=== PATIENT | female | born 1970 | race Caucasian/White ===

== ENCOUNTER → 2016-11-07 | Outpatient (CLI) | payer OTHER ==
--- NOTE | 2016-11-07 12:30 | US ---
EXAMINATION TYPE: US duplex aorta DATE OF EXAM: 11/07/2016 11:07 AM COMPARISON: NONE CLINICAL HISTORY: Z13.9 AAA SCREENING. EXAM MEASUREMENTS: Abdominal Aorta: Proximal: 2.2cm by 2.4 cm transversely Mid: 1.6cm by 1.6 cm transversely Distal: 1.3cm by 1.3 cm transversely Bifurcation: 0.9cm 0.9cm no AAA Ultrasound of entire aorta through bifurcation has measurements detailed above. IMPRESSION: No ultrasound evidence for abdominal aortic aneurysm.
--- NOTE | 2016-11-07 13:58 | MM ---
Reason for exam: screening (asymptomatic). Physical Findings: Nurse did not find any significant physical abnormalities on exam. MG Screening Mammo Implant/CAD Bilateral CC, MLO, and ID view(s) were taken. No prior studies available for comparison. The breast tissue is heterogeneously dense. This may lower the sensitivity of mammography. There is no discrete abnormality. Subpectoral implants x2. These results were verbally communicated with the patient and result sheet given to the patient on 11/07/16. ASSESSMENT: Benign, BI-RAD 2 RECOMMENDATION: Routine screening mammogram of both breasts in 1 year.
== END | disposition home or self-care (01) ==
LOC: RADUSWWP 10:22
PROVIDERS: ATTEND Family Medicine
DX: Z12.31 Encounter for screening mammogram for malignant neoplasm of breast (principal); Z13.9 Encounter for screening, unspecified
CPT/HCPCS: 93979; G0202

== ENCOUNTER → 2017-01-11 | Outpatient (CLI) | payer OTHER ==
--- NOTE | 2017-01-11 08:08 | US ---
EXAMINATION TYPE: US gallbladder DATE OF EXAM: 01/11/2017 COMPARISON: NONE CLINICAL HISTORY: R10.84 Generalized abd pain. RUQ pain, lower abdominal pain EXAM MEASUREMENTS: Liver Length: 14.3 cm Gallbladder Wall: 0.3 cm CBD: 0.4 cm Right Kidney: 10.4 x 3.8 x 5.1 cm Pancreas: visualized portions appear wnl Liver: appears wnl Gallbladder: wnl Evidence for sonographic Lin's sign: No CBD: wnl Right Kidney: no evidence of hydronephrosis or mass The pancreas is unremarkable. The liver is normal in size without evidence of biliary dilatation. The gallbladder is normal without cholelithiasis. The gallbladder wall measures 3 mm. The distal comm on hepatic duct measures 4 mm. There is no sonographic Lin's sign. Right kidney is normal. IMPRESSION: NORMAL RIGHT UPPER QUADRANT ULTRASOUND.
== END | disposition home or self-care (01) ==
LOC: RADUSWWP 06:57
PROVIDERS: ATTEND Family Medicine
DX: R10.84 Generalized abdominal pain (principal)
CPT/HCPCS: 76705

== ENCOUNTER 2017-01-18 08:55 | Day surgery (SDC) | payer OTHER ==
[2017-01-16 09:24] VITALS: BMI 29.5
[~2017-01-18 08:55] MED LIST: LACTATED RINGERS 1,000 ML IV SCH
[2017-01-18 09:27] VITALS: TEMP 98.5
[2017-01-18] MEDS ORDERED: LIDOCAINE 1% 20 ML VIAL (10MG/ML) FOR IV START INTRADERMA ONE (09:33)
[2017-01-18] MEDS ORDERED: LIDOCAINE 1% INJ 10MG/ML (20 ML MDV) ONE (10:20)
[2017-01-18] MEDS ORDERED: PROPOFOL 10 MG/ML 20 ML VIAL IV ONE (10:20)
--- NOTE | 2017-01-18 10:24 | P.GSHP ---
History of Present Illness H&P Date: 01/18/17 Chief Complaint: GERD, colon cancer screening, high risk Patient here today for upper and lower endoscopy. She has chronic reflux. Her sister was just diagnosed at colon cancer at a young age. She has no bowel related complaints. She has never had an endoscopy before. Past Medical History Past Medical History: Asthma Additional Past Medical History / Comment(s): CHRONIC NECK AND BACK PAIN History of Any Multi-Drug Resistant Organisms: None Reported Past Surgical History: Back Surgery, Breast Surgery, Section, Uterine Ablation Additional Past Surgical History / Comment(s): BREAST AUGMENTATION. BACK SX X 2. C-SEC X 2 Past Anesthesia/Blood Transfusion Reactions: No Reported Reaction Smoking Status: Current every day smoker - Past Family History Sister(s) Family Medical History: Cancer Additional Family Medical History / Comment(s): COLON Medications and Allergies Home Medications Medication Instructions Recorded Confirmed Type Albuterol Sulfate [Proventil Hfa] 1 - 2 puff INHALATION Q6HR PRN 01/16/17 History Atomoxetine HCl [Strattera] 40 mg PO QAM 01/16/17 01/18/17 History Budesonide/Formoterol Fumarate 2 puff INHALATION DAILY 01/16/17 01/18/17 History [Symbicort 160-4.5 Mcg Inhaler] Ergocalciferol (Vitamin D2) 50,000 units PO JOHNSON 01/16/17 01/18/17 History [Vitamin D2] Morphine Sulfate 15 mg PO BID 01/16/17 01/18/17 History Allergies Allergy/AdvReac Type Severity Reaction Status Date / Time No Known Allergies Allergy Verified 01/16/17 09:11 Surgical - Exam Vital Signs Temp Pulse Resp BP Pulse Ox 98.5 F 80 16 112/70 100 01/18/17 09:26 01/18/17 09:26 01/18/17 09:26 01/18/17 09:26 01/18/17 09:26 Physical exam: General: Well-developed, well-nourished HEENT: Normocephalic, sclerae nonicteric Abdomen: Nontender, nondistended Extremities: No edema Neuro: Alert and oriented Assessment and Plan (1) Colon cancer screening Narrative/Plan: Will proceed with upper and lower endoscopy at this time. Status: Acute
--- NOTE | 2017-01-18 10:41 | P.PCN ---
Date of Procedure: 01/18/17 Preoperative Diagnosis: Postoperative Diagnosis: Procedure(s) Performed: PREOPERATIVE DIAGNOSIS: GERD, colon cancer screening POSTOPERATIVE DIAGNOSIS: Gastritis, hiatal hernia, normal colon PROCEDURE: 1. EGD with biopsy 2. Colonoscopy ANESTHESIA: MAC SURGEON: Bong Cruz M.D. SPECIMENS: Antrum ENDOSCOPIC PROCEDURE: The patient was on the endoscopy table in the left decubitus position. The Olympus gastroscope was inserted into the oropharynx and passed under direct visualization to the region of the third portion of the duodenum. From that point the scope was slowly withdrawn inspecting all surfaces carefully. There were no neoplastic inflammatory or polypoid lesions throughout the duodenum. The pylorus was widely patent. The stomach was carefully inspected. There was mild gastritis present. A biopsy of the antrum took place to rule out H. pylori. Retroflexion revealed a small sliding hiatal hernia. The esophagus was then carefully examined. There were no neoplastic inflammatory or polypoid lesions throughout the visualized esophagus. The patient was kept on the endoscopy table in the left decubitus position. The Olympus colonoscope was inserted into the anus and passed under direct visualization to the base of the cecum. The appendiceal orifice was visualized. From that point the scope was slowly withdrawn inspecting all surfaces carefully. There were no neoplastic inflammatory or polypoid lesions throughout the cecum, ascending, transverse, descending, sigmoid and rectum. There was no diverticulosis noted. The patient's prep was slightly suboptimal. Digital rectal examination was normal. The patient was taken to the recovery room in stable condition per anesthesia guidelines. RECOMMENDATIONS: Increase Fiber. Follow-up colonoscopy in 5 years Implants: Indications for Procedure: Operative Findings: Description of Procedure:
[2017-01-18] MEDS ORDERED: ALBUTEROL NEBULIZED 2.5 MG/3 ML INHALATION STA (11:00)
[2017-01-18 11:16] VITALS: BP 110/68
[2017-01-18 11:19] VITALS: RESP 16
[2017-01-18 11:24] VITALS: PULSE 76
== END 2017-01-18 11:29 | disposition home or self-care (01) ==
LOC: ORWHC2ENDO 08:55
PROVIDERS: ATTEND Surgery
DX: Z12.11 Encounter for screening for malignant neoplasm of colon (principal); K29.50 Unspecified chronic gastritis without bleeding; K44.9 Diaphragmatic hernia without obstruction or gangrene; Z80.0 Family history of malignant neoplasm of digestive organs; J45.909 Unspecified asthma, uncomplicated; Z79.891 Long term (current) use of opiate analgesic; Z79.51 Long term (current) use of inhaled steroids; Z79.899 Other long term (current) drug therapy; G89.29 Other chronic pain
CPT/HCPCS: 94640; 81025; 88305; 88342; 43239; J2001; J2704; G0105

== ENCOUNTER → 2017-02-23 | Outpatient (CLI) | payer OTHER ==
--- NOTE | 2017-02-23 15:48 | NM ---
EXAMINATION TYPE: NM hepatobiliary w EF DATE OF EXAM: 02/23/2017 COMPARISON: Ultrasound gallbladder 01/11/2017 HISTORY: Right upper quadrant pain TECHNIQUE: After the intravenous administration of 5.42 mCi Tc 99m Mebrofenin hepatobiliary scintigra phy is performed. Immediate images post injection. FINDINGS: There is satisfactory initial accumulation of tracer by the liver. The gallbladder is visualized wit hin 4 minutes. The small bowel activity is noted on delayed images. At one hour 8 ounces of oral en sure plus is given to mimic CCK and gallbladder ejection fraction is calculated at 67 %, in the maurilio l range. Therefore there is no scintigraphic evidence of cystic or common bile duct obstruction to s uggest acute cholecystitis or gallbladder dyskinesia. IMPRESSION: Some delayed visualization of the small bowel. Normal gallbladder ejection fraction.
== END | disposition home or self-care (01) ==
LOC: RADNMMAIN 12:52
PROVIDERS: ATTEND Family Medicine
DX: R10.11 Right upper quadrant pain (principal)
CPT/HCPCS: 78226; A9537

== ENCOUNTER → 2017-03-08 | Outpatient (CLI) | payer MEDICARE, OTHER ==
--- NOTE | 2017-03-09 07:58 | CT ---
EXAMINATION TYPE: CT chest wo con DATE OF EXAM: 03/08/2017 COMPARISON: NONE HISTORY: Right sided lower rib pain without injury CT DLP: 361.[address] of the chest was performed with lung and mediastinal window settings submitted. The la ck of contrast limits evaluation of the vascular, mediastinal and parenchymal structures including th e upper abdomen. LUNGS: The lungs are clear and free of infiltrate. No atelectasis. No pulmonary nodule or mass is de tected. No pleural effusion. No CT evidence of interstitial lung disease. MEDIASTINUM/CHRISTY: Thoracic aorta is of normal caliber with limited evaluation given lack of contrast . The heart is not enlarged. No evidence for mediastinal mass. No lymph nodes greater than 1cm. UPPER ABDOMEN: No significant abnormality is seen. OTHER: The ribs appear symmetric and free of distinct lesion or fracture. Bilateral breast implants a re. IMPRESSION: 1. No significant abnormality appreciated.
== END | disposition home or self-care (01) ==
LOC: RADCTMAIN 18:29
PROVIDERS: ATTEND Family Medicine
DX: R07.81 Pleurodynia (principal)
CPT/HCPCS: 71250

== ENCOUNTER → 2018-05-16 | Outpatient (CLI) | payer OTHER ==
--- NOTE | 2018-05-17 13:15 | MM ---
Reason for exam: screening (asymptomatic). Last mammogram was performed 1 year and 6 months ago. MG Screening Mammo Implant/CAD Bilateral CC, MLO, and ID view(s) were taken. Prior study comparison: November 07, 2016, bilateral MG screening mammo implant/CAD. There are scattered fibroglandular densities. No significant changes when compared with prior studies. ASSESSMENT: Benign, BI-RAD 2 RECOMMENDATION: Routine screening mammogram of both breasts in 1 year.
== END | disposition home or self-care (01) ==
LOC: RADMAMWWP 10:17
DX: Z12.31 Encounter for screening mammogram for malignant neoplasm of breast (principal)
CPT/HCPCS: 77067

== ENCOUNTER → 2019-07-01 | Outpatient (CLI) | payer OTHER ==
--- NOTE | 2019-07-01 13:16 | MM ---
Reason for exam: screening (asymptomatic). Last mammogram was performed 1 year and 2 months ago. Physical Findings: A clinical breast exam by your physician is recommended on an annual basis and results should be correlated with mammographic findings. MG Screening Mammo Implant/CAD Bilateral CC, MLO, and ID view(s) were taken. Prior study comparison: May 16, 2018, bilateral MG screening mammo implant/CAD. November 07, 2016, bilateral MG screening mammo implant/CAD. The breast tissue is heterogeneously dense. This may lower the sensitivity of mammography. No suspicious abnormality. Bilateral retropectoral saline implants. No significant changes when compared with prior studies. ASSESSMENT: Negative, BI-RAD 1 RECOMMENDATION: Routine screening mammogram of both breasts in 1 year.
== END | disposition home or self-care (01) ==
LOC: RADMAMWWP 08:21
DX: Z12.31 Encounter for screening mammogram for malignant neoplasm of breast (principal)
CPT/HCPCS: 77067

== ENCOUNTER → 2019-07-18 | Outpatient (CLI) | payer OTHER ==
--- NOTE | 2019-07-18 13:09 | CONS ---
CONSULTATION DATE OF SERVICE: 07/18/2019 A 49-year-old lady who has been evaluated in the [facility] for significant excessive daytime sleepiness for many years. HISTORY OF PRESENT ILLNESS/SLEEP-WAKE EVALUATION: Patient's usual sleep schedule on working days from 9 - 10 pm until 6:15 - 6:25 am. On weekend from 9 - 10 pm until 7:30 am. Sometimes she has problems with falling asleep. She has TV set in bedroom/ She sleeps on the back position. She has history of mild snoring. She may wake up from sleep up to 3 times with nocturia. She denies any significant movements at night. No history of hypnagogic hallucinations, sleep paralysis or cataplexy. Significant excessive daytime sleepiness. Crawford Sleepiness Scale in very high range of 15. PAST MEDICAL HISTORY: Positive for hyperlipidemia, asthma, acid reflux. PAST SURGICAL HISTORY: L5-S1 laminectomy in 2010, two C sections. MEDICATIONS: Atorvastatin, Prilosec, albuterol, vitamin D3 supplement. SOCIAL HISTORY: Positive for smoking for about 20 years, less than 1 pack a day, presently several cigarettes a week. Alcohol consumption none. FAMILY HISTORY: Hypertension, heart problems, hyperlipidemia, arthritis, asthma, sinus problems, bronchitis, headaches, cancer, insomnia, diabetes, thyroid problems, acid reflux, ulcers. REVIEW OF SYSTEMS: Awakenings from sleep, significant excessive daytime sleepiness. Crawford Sleepiness Scale significantly increased to 15. PHYSICAL EXAM: lady without distress, BP 123/66, HR 90, RR 14, height 5 and 3 and weight 181.2. Body mass index 31.5, temperature 98.3, oxygen saturation at room air 100%. OROPHARYNX: Moderately low position of soft palate, wide pillars. A slight restriction of nasal breathing. ABDOMEN: Slightly obese. NECK: Supple, no JVD. Thyroid is not palpable. LUNGS: Clear to percussion and to auscultation. Good air exchange. No wheezing or rhonchi. HEART: S1, S2 regular. No murmurs, gallops, or rubs. EXTREMITIES: No clubbing or cyanosis. CLINICAL REHABILITATION SPECIALIST: Awake, alert, and oriented X3. Cranial nerves 2 to 7 intact. There is no fasciculation or atrophy. noted. No focal deficits observed. IMPRESSION: 1. Mild snoring, awakenings from sleep with nocturia up to 3 times, wide pillars. Slight restriction of nasal breathing. Possible obstructive sleep apnea-hypopnea syndrome. 2. Significant excessive daytime sleepiness. Crawford Sleepiness Scale increased to 15. Differential diagnosis should include hypersomnia and narcolepsy without cataplexy. 3. Mild obesity, body mass index 31.5. 4. Asthma. 5. Hyperlipidemia. 6. Acid reflux. 7. Status post laminectomy L5-S1 in 2010. 8. Status post two C sections. PLAN: 1. Polysomnography for evaluation of patient's breathing during sleep. 2. CPAP/BiPAP titration if sleep study confirms obstructive sleep apnea-hypopnea syndrome. 3. Preferable position during sleep on the side. 4. No driving if patient feels any sleepiness. 5. Multiple sleep latency test. The sleep study did not show signs of obstructive sleep apnea-hypopnea syndrome. 6. I will see patient for follow up visit to explain results of testing and following plan. Thank you very much for referring this patient for consultation. Sincerely, Celestino Webb MD, PhD, FAASM Diplomat of [employer] [employer] [employer] [facility] MMODL / IJN: [id number] /
== END | disposition home or self-care (01) ==
LOC: SLEEP 10:22
PROVIDERS: ATTEND Internal Medicine
DX: R06.83 Snoring (principal); R35.1 Nocturia; E66.9 Obesity, unspecified; Z68.31 Body mass index [BMI] 31.0-31.9, adult; E78.5 Hyperlipidemia, unspecified; K21.9 Gastro-esophageal reflux disease without esophagitis; J45.909 Unspecified asthma, uncomplicated; F17.210 Nicotine dependence, cigarettes, uncomplicated; Z98.890 Other specified postprocedural states; Z79.899 Other long term (current) drug therapy
CPT/HCPCS: 99211

== ENCOUNTER 2019-09-01 17:28 | Emergency (ER) | payer OTHER ==
[2019-09-01 17:39] VITALS: PULSE 94; RESP 18
[2019-09-01] MEDS ORDERED: SODIUM CHLORIDE 0.9% 1,000 ML IV STA (18:00)
[2019-09-01] MEDS ORDERED: HYDROmorphone 0.5 MG/0.5 ML SYRINGE IVP STA (18:00)
[2019-09-01] MEDS ORDERED: ONDANSETRON 4 MG/2 ML VIAL IVP STA (18:00)
--- NOTE | 2019-09-01 18:27 | ED ---
General Adult HPI - General Chief complaint: Back Pain/Injury Stated complaint: Back and arm pain Time Seen by Provider: 09/01/19 17:52 Source: patient Mode of arrival: ambulatory Limitations: no limitations - History of Present Illness Initial comments: 49-year-old female patient presents to the emergency department today for evaluation of left-sided back pain extending from her left flank radiating up to the left shoulder and extending down the left arm. Patient states with this she does feel mildly short of breath. She is reporting some nausea. States she is feeling dizzy. Patient states she was sitting in a chair when the pain suddenly hit her. She is reporting a numb feeling to the left arm as well. She denies any history of similar symptoms. Denies any injuries to her back. Patient denies any chest pain. Denies any cough or congestion. Patient's father does have a "disease where he develops aneurysms and dissections to his arteries". Patient's mother believes this condition is hereditary. Patient denies any hematuria, dysuria, urinary frequency, urinary urgency. Denies any constipation or diarrhea. Denies any hematochezia or melena. Patient denies any recent rash, fever, chills, dizziness, weakness, headache, visual changes, or any other complaints. - Related Data Home Medications Medication Instructions Recorded Confirmed Albuterol Sulfate [Proventil Hfa] 1 - 2 puff INHALATION Q6HR PRN 01/16/17 01/18/17 Atomoxetine HCl [Strattera] 40 mg PO QAM 01/16/17 01/18/17 Budesonide/Formoterol Fumarate 2 puff INHALATION DAILY 01/16/17 01/18/17 [Symbicort 160-4.5 Mcg Inhaler] Ergocalciferol (Vitamin D2) 50,000 units PO JOHNSON 01/16/17 01/18/17 [Vitamin D2] Morphine Sulfate 15 mg PO BID 01/16/17 01/18/17 Allergies Allergy/AdvReac Type Severity Reaction Status Date / Time No Known Allergies Allergy Verified 09/01/19 17:36 Review of Systems ROS Statement: Those systems with pertinent positive or pertinent negative responses have been documented in the HPI. ROS Other: All systems not noted in ROS Statement are negative. Past Medical History Past Medical History: Hyperlipidemia History of Any Multi-Drug Resistant Organisms: None Reported Past Surgical History: Back Surgery Additional Past Surgical History / Comment(s): L5-s! laminectomy Past Psychological History: Anxiety, Depression, Panic Disorder Smoking Status: Current every day smoker Past Alcohol Use History: None Reported Past Drug Use History: None Reported General Exam Limitations: no limitations General appearance: alert, in no apparent distress, other (This is a well- developed, well-nourished adult female patient in no acute distress. Vital signs upon presentation are temperature 98.1F, pulse 94, respirations 18, blood pressure 117/82, pulse ox 100% on room air.) Eye exam: Present: normal appearance, PERRL, EOMI. Absent: scleral icterus, conjunctival injection, periorbital swelling ENT exam: Present: normal exam, normal oropharynx, mucous membranes moist Respiratory exam: Present: normal lung sounds bilaterally. Absent: respiratory distress, wheezes, rales, rhonchi, stridor Cardiovascular Exam: Present: regular rate, normal rhythm, normal heart sounds. Absent: systolic murmur, diastolic murmur, rubs, gallop, clicks GI/Abdominal exam: Present: soft, normal bowel sounds. Absent: distended, tenderness, guarding, rebound, rigid Neurological exam: Present: alert, oriented X3, CN II-XII intact Psychiatric exam: Present: normal affect, normal mood Skin exam: Present: warm, dry, intact, normal color. Absent: rash Course Vital Signs 09/01/19 09/01/19 17:36 19:15 Temperature 98.1 F 98.4 F Pulse Rate 94 94 Respiratory 18 18 Rate Blood Pressure 117/82 117/74 O2 Sat by Pulse 100 99 Oximetry EKG Findings - EKG Comments: EKG Findings:: EKG obtained at 1832 shows normal sinus rhythm with ventricular rate of 89, OK interval 152, QRS duration 70, QT 370, QTC 450. No ST elevation or depression noted. Medical Decision Making - Medical Decision Making 49-year-old female patient presented to the emergency department today for evaluation of left-sided back pain with radiation down the left arm numbness started approximately 2 hours prior to arrival. Patient is reporting associated shortness of breath and nausea with this. Denied any difficulty with urination. There is a family history of hereditary condition causing arterial dissections. CT of the thoracic and abdominal aorta were obtained and showed no abnormalities. Remainder of CT was unremarkable. EKG was normal sinus rhythm. Initial labs were reviewed and showed no evidence for troponin elevation or other abnormalities. I did discuss findings and results with the patient. Given her history of smoking and her concerning symptoms and did recommend admission for serial troponins and evaluation by cardiology. Patient refused admission. I did discuss risks of leaving including permanent cardiac damage, , and stroke. Patient verbalizes understanding and will sign AGAINST MEDICAL ADVICE form. She is instructed to follow-up with her primary care physician for recheck as soon as possible. Return parameters were discussed in detail. - Lab Data Result diagrams: 09/01/19 18:10 09/01/19 18:10 Lab Results 09/01/19 09/01/19 09/01/19 Range/Units 18:10 18:10 18:10 WBC 8.2 (3.8-10.6) k/uL RBC 5.18 (3.80-5.40) m/uL Hgb 15.8 (11.4-16.0) gm/dL Hct 46.5 H (34.0-46.0) % MCV 89.9 (80.0-100.0) fL MCH 30.6 (25.0-35.0) pg MCHC 34.0 (31.0-37.0) g/dL RDW 12.7 (11.5-15.5) % Plt Count 241 (150-450) k/uL Neutrophils % 56 % Lymphocytes % 34 % Monocytes % 5 % Eosinophils % 2 % Basophils % 1 % Neutrophils # 4.6 (1.3-7.7) k/uL Lymphocytes # 2.8 (1.0-4.8) k/uL Monocytes # 0.4 (0-1.0) k/uL Eosinophils # 0.1 (0-0.7) k/uL Basophils # 0.1 (0-0.2) k/uL PT (9.0-12.0) sec INR (<1.2) APTT (22.0-30.0) sec Sodium 137 (137-145) mmol/L Potassium 3.8 (3.5-5.1) mmol/L Chloride 102 (98-107) mmol/L Carbon Dioxide 28 (22-30) mmol/L Anion Gap 7 mmol/L BUN 7 (7-17) mg/dL Creatinine 0.82 (0.52-1.04) mg/dL Est GFR (CKD-EPI)AfAm >90 (>60 ml/min/1.73 sqM) Est GFR (CKD-EPI)NonAf 84 (>60 ml/min/1.73 sqM) Glucose 92 (74-99) mg/dL Plasma Lactic Acid Christian 1.1 (0.7-2.0) mmol/L Calcium 9.7 (8.4-10.2) mg/dL Total Bilirubin 0.4 (0.2-1.3) mg/dL AST 29 (14-36) U/L ALT 17 (4-34) U/L Alkaline Phosphatase 83 (38-126) U/L Troponin I (0.000-0.034) ng/mL Total Protein 7.3 (6.3-8.2) g/dL Albumin 4.5 (3.5-5.0) g/dL Amylase 57 (30-110) U/L Lipase 112 (23-300) U/L Urine Color Urine Appearance (Clear) Urine pH (5.0-8.0) Ur Specific [place] (1.001-1.035) Urine Protein (Negative) Urine Glucose (UA) (Negative) Urine Ketones (Negative) Urine Blood (Negative) Urine Nitrite (Negative) Urine Bilirubin (Negative) Urine Urobilinogen (<2.0) mg/dL Ur Leukocyte Esterase (Negative) 09/01/19 09/01/19 09/01/19 Range/Units 18:10 18:10 18:10 WBC (3.8-10.6) k/uL RBC (3.80-5.40) m/uL Hgb (11.4-16.0) gm/dL Hct (34.0-46.0) % MCV (80.0-100.0) fL MCH (25.0-35.0) pg MCHC (31.0-37.0) g/dL RDW (11.5-15.5) % Plt Count (150-450) k/uL Neutrophils % % Lymphocytes % % Monocytes % % Eosinophils % % Basophils % % Neutrophils # (1.3-7.7) k/uL Lymphocytes # (1.0-4.8) k/uL Monocytes # (0-1.0) k/uL Eosinophils # (0-0.7) k/uL Basophils # (0-0.2) k/uL PT 9.5 (9.0-12.0) sec INR 0.9 (<1.2) APTT 26.6 (22.0-30.0) sec Sodium (137-145) mmol/L Potassium (3.5-5.1) mmol/L Chloride (98-107) mmol/L Carbon Dioxide (22-30) mmol/L Anion Gap mmol/L BUN (7-17) mg/dL Creatinine (0.52-1.04) mg/dL Est GFR (CKD-EPI)AfAm (>60 ml/min/1.73 sqM) Est GFR (CKD-EPI)NonAf (>60 ml/min/1.73 sqM) Glucose (74-99) mg/dL Plasma Lactic Acid Christian (0.7-2.0) mmol/L Calcium (8.4-10.2) mg/dL Total Bilirubin (0.2-1.3) mg/dL AST (14-36) U/L ALT (4-34) U/L Alkaline Phosphatase (38-126) U/L Troponin I <0.012 (0.000-0.034) ng/mL Total Protein (6.3-8.2) g/dL Albumin (3.5-5.0) g/dL Amylase (30-110) U/L Lipase (23-300) U/L Urine Color Yellow Urine Appearance Clear (Clear) Urine pH 8.0 (5.0-8.0) Ur Specific [place] 1.005 (1.001-1.035) Urine Protein Negative (Negative) Urine Glucose (UA) Negative (Negative) Urine Ketones Negative (Negative) Urine Blood Negative (Negative) Urine Nitrite Negative (Negative) Urine Bilirubin Negative (Negative) Urine Urobilinogen <2.0 (<2.0) mg/dL Ur Leukocyte Esterase Negative (Negative) - Radiology Data Radiology results: report reviewed, image reviewed CT of the thoracic, abdominal, and pelvic aorta was obtained. Report was reviewed in its entirety. Impression by Dr. Cummings shows negative CT angiogram of the chest abdomen and pelvis. No evidence of arterial aneurysm or dissection. No evidence of pulmonary embolism. Disposition Clinical Impression: Back pain, Left arm pain, Anginal equivalent Disposition: Left Against Medical Advice Condition: Undetermined Instructions (If sedation given, give patient instructions): Angina (ED), Back Pain (ED), Arm Pain (ED) Additional Instructions: Follow-up with your primary care physician for recheck as soon as possible. Return to the emergency department immediately for any new, worsening, or concerning symptoms. Is patient prescribed a controlled substance at d/c from ED?: No Referrals: [facility],Clinic [Primary Care Provider] - 1-2 days Time of Disposition: 20:04
[2019-09-01 18:34] LABS: Basophils # (A) 0.1 k/uL (0-0.2); Basophils % (A) 1 %; Eosinophils # (A) 0.1 k/uL (0-0.7); Eosinophils % (A) 2 %; HCT 46.5 % (34.0-46.0); HGB 15.8 gm/dL (11.4-16.0); Lymphocytes # (A) 2.8 k/uL (1.0-4.8); Lymphocytes % (A) 34 %; MCH 30.6 pg (25.0-35.0); MCV 89.9 fL (80.0-100.0); Monocytes # (A) 0.4 k/uL (0-1.0); Monocytes % (A) 5 %; Neutrophils # (A) 4.6 k/uL (1.3-7.7); Neutrophils % (A) 56 %; Platelet Count 241 k/uL (150-450); RBC 5.18 m/uL (3.80-5.40); RDW 12.7 % (11.5-15.5); WBC 8.2 k/uL (3.8-10.6)
[2019-09-01 18:35] LABS: Appearance,Urine Clear (Clear); Color,Urine Yellow
[2019-09-01 18:36] LABS: Bilirubin,Urine Negative (Negative); Blood,Urine Negative (Negative); Glucose,Urine (UA) Negative (Negative); Ketones,Urine Negative (Negative); Leukocyte Esterase,Urine Negative (Negative); Nitrite,Urine Negative (Negative); Protein,Urine Negative (Negative); Specific Gravity,Urine 1.005 (1.001-1.035); Urobilinogen,Urine <2.0 mg/dL (<2.0)
[2019-09-01 18:40] LABS: INR 0.9 (<1.2); Partial Thromboplastin Time 26.6 sec (22.0-30.0); Prothrombin Time 9.5 sec (9.0-12.0)
[2019-09-01 18:43] LABS: ALT 17 U/L (4-34); AST 29 U/L (14-36); African American GFR (CKD) >90 (>60 ml/min/1.73 sqM); Albumin 4.5 g/dL (3.5-5.0); Alkaline Phosphatase 83 U/L (38-126); Amylase 57 U/L (30-110); Anion Gap 7 mmol/L; Blood Urea Nitrogen 7 mg/dL (7-17); Calcium 9.7 mg/dL (8.4-10.2); Carbon Dioxide 28 mmol/L (22-30); Chloride 102 mmol/L (98-107); Glucose 92 mg/dL (74-99); Non-African American GFR(CKD) 84 (>60 ml/min/1.73 sqM); Potassium 3.8 mmol/L (3.5-5.1); Sodium 137 mmol/L (137-145); Total Bilirubin 0.4 mg/dL (0.2-1.3); Total Protein 7.3 g/dL (6.3-8.2)
[2019-09-01 19:18] VITALS: BP 117/74; TEMP 98.4
--- NOTE | 2019-09-01 19:30 | CT ---
EXAMINATION TYPE: CT angio thor/abd pel aorta DATE OF EXAM: 09/01/2019 COMPARISON: HISTORY: Back pain and left arm pain. CT DLP: 1881.3 mGycm Automated exposure control for dose reduction was used. CONTRAST: Performed without and with IV Contrast, patient injected with 100ml mL of Isovue 370. There are 3-D post processed images. Exam was performed without and subsequently with IV contrast from the thoracic inlet to the floor the pelvis. There is normal branching pattern of the great vessels on the aortic arch. Thoracic aorta is intact. There is no aneurysm or dissection. Heart size is normal. There is normal contrast opacification of t he pulmonary arteries. There are no filling defects. There is no pericardial effusion. Subclavian art eries appear normal. There is patency of the celiac artery and superior mesenteric artery. There is bilateral arterial ghislaine w in the renal arteries. There is arterial flow in the iliac and femoral arteries. I see no evidence of hemodynamic stenosis. There is no evidence of arterial aneurysm or dissection. The lungs are clear of infiltrate. There is no pleural effusion. There is bilateral breast implants. Liver spleen pancreas stomach gallbladder appear normal. Bile ducts are not dilated. Kidneys show sat isfactory contrast opacification. There is no hydronephrosis. The ureters are not dilated. Bladder di stends smoothly. There is no inguinal hernia. There is no free fluid in the pelvis. Uterus is antever aubree. There is no evidence of pelvic mass. There is no mesenteric edema. There is no ascites or free a ir. Appendix is medial and appears normal. Thoracic and lumbar spine are intact. IMPRESSION: Negative CT angiogram of the chest abdomen pelvis. No evidence of arterial aneurysm or dissection. No evidence of pulmonary embolism.
== END 2019-09-01 20:12 | disposition left against medical advice (07) ==
LOC: EC 17:28
DX: I20.8 Other forms of angina pectoris (principal); M79.602 Pain in left arm; R06.02 Shortness of breath; R11.0 Nausea; R42 Dizziness and giddiness; R20.0 Anesthesia of skin; M54.9 Dorsalgia, unspecified; F17.200 Nicotine dependence, unspecified, uncomplicated; Z79.51 Long term (current) use of inhaled steroids; Z79.891 Long term (current) use of opiate analgesic; Z79.899 Other long term (current) drug therapy; Z98.890 Other specified postprocedural states; Z53.29 Procedure and treatment not carried out because of patient's decision for other reasons
CPT/HCPCS: 36415; 80053; 82150; 83605; 83690; 84484; 85025; 85610; 85730; 81003; 71275; 74174; 99284; 96360; 96361; Q9967

== ENCOUNTER → 2021-04-02 | Outpatient (CLI) | payer OTHER ==
--- NOTE | 2021-04-02 14:14 | MR ---
EXAMINATION TYPE: MR cspine/lspine wo con DATE OF EXAM: 04/02/2021 COMPARISON: None HISTORY: Low back pain, neck pain, NICOLE TECHNIQUE: Multiplanar, multisequence imaging of the vertical and lumbar spine is performed without I V contrast. FINDINGS: cervical spine MRI: Cervical vertebral bodies show preserved height and alignment. There is loss of d isc height at C5-6, C6-7, associated spondylosis and endplate discogenic marrow signal change. Cervic al cord signal is maintained. C2-3: Unremarkable C3-4: There is some facet arthropathy, uncovertebral joint hypertrophy contributing to cause some rig ht-sided foraminal encroachment. No evident disc herniation or spinal stenosis. C4-5: No significant foraminal encroachment or spinal stenosis. Posterior paracentral disc bulge causes minimal anterior m ass effect on the thecal sac. There may be contact with the anterior cervical cord. C5-6: Posterior extension endplate disc complex results in some mild spinal stenosis. There is forami nal encroachment right greater than left due to uncovertebral joint hypertrophy and facet arthropathy change. C6-7: Left posterior paracentral extension endplate disc complex causes anterolateral mass effect on the thecal sac extending towards the left neural foramen, uncovertebral joint hypertrophy results in some left-sided foraminal encroachment greater than right. Posterior extension of endplate disc compl ex may contact the anterior cervical cord. Only mild spinal stenosis. C7-T1: No significant abnormality. IMPRESSION: Degenerative disc disease, multilevel foraminal encroachment. Lumbar spine MRI: Sagittal images of the lumbar spine show vertebral body heights and alignment to [place] satisfactory. Loss of disc height and signal is present at intervertebral levels at L4-5, L5-S1, L3-4, there is spondylosis with endplate discogenic marrow signal change. The conus medullaris is no rmal in position and signal. There is laminectomy change on the right at L5. There is no significant spinal stenosis. L5-S1 shows circumferential extension endplate disc complex results in foraminal encroachment inferio r aspects greater on the left than on the right. Posterior right paracentral disc herniation is prese nt possibly causing mass effect on the right S1 nerve root. There is some facet arthropathy change. L4-5: Circumferential extension endplate disc complex results in some foraminal encroachment inferior ly greater on the right than on the left, circumferential posterior disc bulge causes anterior mass e ffect on the thecal sac. 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 L3-4: Posterior central disc herniation causes deformity the anterior thecal sac. Circumferential ext ension endplate disc complex results in foraminal encroachment greater on the right than on the left. Only mild spinal stenosis. There is facet arthropathy with hypertrophy ligamentum flavum. L2-3: No significant foraminal encroachment or evident disc herniation. There is some facet arthropat hy change. L1-2: Within normal limits. IMPRESSION: Postop changes, suspect a small disc herniation L5-S1, correlate for right S1 radiculopat hy, postcontrast MRI through the lumbar spine may be of benefit. Multilevel foraminal encroachment. C entral posterior disc herniation noted at L3-4.
== END | disposition home or self-care (01) ==
LOC: RADMRIMAIN 09:45
PROVIDERS: ATTEND Nurse Practitioner Acute Care
DX: M48.02 Spinal stenosis, cervical region (principal); M50.30 Other cervical disc degeneration, unspecified cervical region; M89.38 Hypertrophy of bone, other site; M51.26 Other intervertebral disc displacement, lumbar region
CPT/HCPCS: 72141; 72148

== ENCOUNTER → 2021-04-29 | Outpatient (CLI) | payer OTHER ==
[2021-04-29 09:53] VITALS: BP 101/74; PULSE 91; RESP 18; TEMP 97.7
--- NOTE | 2021-04-29 10:22 | P.CONS ---
History of Present Illness - Reason for Consult Consult date: 04/29/21 - Chief Complaint Lower back and right leg pain - History of Present Illness This is a 51-year-old lady with history of chronic lower back pain with radiation to the right lower extremity down to the right ankle. The patient had 2 back surgeries previously and she had lumbar the branch RFA which gave her 90% of pain relief. She also has neck pain however she is here today mostly for her lower back pain. The patient had an MRI on the lumbar spine which showed disc herniation at the L5-S1 level with compression of the right S1 nerve root and multiple levels of foraminal stenosis with a central posterior disc herniation at the L3 4 level her cervical spine MRI showed similar changes with foraminal stenosis especially at the C6 7 level bilaterally. The patient failed to respond to physical therapy previously. She takes prid-rra-estngju medications for her pain. Past Medical History Past Medical History: Asthma, CVA/TIA, GERD/Reflux, Hyperlipidemia Additional Past Medical History / Comment(s): lower back and neck pain. TIA History of Any Multi-Drug Resistant Organisms: None Reported Past Surgical History: Back Surgery Additional Past Surgical History / Comment(s): L5-s1 laminectomy x2. lt and rt nerve ablation Past Anesthesia/Blood Transfusion Reactions: Motion Sickness Additional Past Anesthesia/Blood Transfusion Reaction / Comm: sister has hard time waking up from anesthesia Past Psychological History: ADD/ADHD, Anxiety, Depression, Panic Disorder Smoking Status: Current every day smoker Past Alcohol Use History: None Reported Additional Past Alcohol Use History / Comment(s): 3-4cig/day attempting to smoke Past Drug Use History: None Reported Medications and Allergies Home Medications Medication Instructions Recorded Confirmed Type Albuterol Sulfate [Proventil Hfa] 1 - 2 puff INHALATION Q6HR PRN 01/16/17 04/29/21 History Atorvastatin Calcium [Lipitor] 10 mg PO DAILY 04/23/21 04/29/21 History Cholecalciferol [Vitamin D3 (25 100 mcg PO DAILY 04/23/21 04/29/21 History Mcg = 1000 Iu)] Omeprazole 40 mg PO DAILY 04/23/21 04/29/21 History Sertraline [Zoloft] 150 mg PO DAILY 04/23/21 04/29/21 History Allergies Allergy/AdvReac Type Severity Reaction Status Date / Time No Known Allergies Allergy Verified 04/23/21 15:24 Physical Exam Vitals: Vital Signs Temp Pulse Resp BP Pulse Ox 04/29/21 09:47 97.7 F 91 18 101/74 97 - Constitutional General appearance: average body habitus - Neurologic Neuro exam of the lower extremities showed absent right ankle reflex but normal rest of the reflexes. Decreased right knee flexion and extension to 4 out of 5 but normal ankle flexion and extension on the left side and slightly decreased on the right side to 4 out of 5. Posture tenderness in the lumbar paravertebral musculature and around the right greater trochanter Assessment and Plan Plan: This is a 51-year-old lady with what seems to be lumbar spondylosis without myelopathy and also with right lumbar radiculopathy and absence of right ankle reflex due to compression of the right S1 nerve root. The patient may benefit from getting lumbar epidural steroid injection given her radicular symptoms however she states that she had better response after the last RFA for similar symptoms. We can schedule the patient to have an RFA on the lumbar medial branches bilaterally for medial branch L3, L4, and L5 however she understands that of her leg pain does not improve she will need a transforaminal epidural steroid injection at the L4 5 and L5-S1 level on the right side. She denies any history of diabetes or any treatment with anticoagulants. The above-mentioned procedure was explained to the patient and her questions were answered. I thank you for the referral.
== END ==
LOC: PNWHC3 09:26
PROVIDERS: ATTEND Anesthesiology
DX: M47.26 Other spondylosis with radiculopathy, lumbar region (principal); M48.061 Spinal stenosis, lumbar region without neurogenic claudication; E78.5 Hyperlipidemia, unspecified; F17.200 Nicotine dependence, unspecified, uncomplicated; J45.909 Unspecified asthma, uncomplicated; F41.0 Panic disorder [episodic paroxysmal anxiety]; F90.9 Attention-deficit hyperactivity disorder, unspecified type; K21.9 Gastro-esophageal reflux disease without esophagitis; F32.9 Major depressive disorder, single episode, unspecified; Z86.73 Personal history of transient ischemic attack (TIA), and cerebral infarction without residual deficits; Z79.899 Other long term (current) drug therapy; Z79.51 Long term (current) use of inhaled steroids
CPT/HCPCS: 99211

== ENCOUNTER 2021-07-02 09:21 | Day surgery (SDC) | payer OTHER ==
[2021-07-02] MEDS ORDERED: LACTATED RINGERS 1,000 ML IV SCH (09:29)
[2021-07-02 09:41] VITALS: TEMP 96.7
[2021-07-02] MEDS ORDERED: fentaNYL (PF) 50 MCG/ML 2 ML AMP ONE (10:08)
[2021-07-02] MEDS ORDERED: MIDAZOLAM 2 MG/2 ML VIAL ONE (10:08)
[2021-07-02] MEDS ORDERED: methylPREDNISolone ACETATE 40 MG/ML 1 ML VIAL ONE (10:08)
[2021-07-02] MEDS ORDERED: ROPIVACAINE 5MG/ML 20ML VIAL ONE (10:08)
--- NOTE | 2021-07-02 10:37 | P.PCN ---
Date of Procedure: 07/02/21 Procedure(s) Performed: PREOPERATIVE DIAGNOSIS: 1-Lumbar Spondylosis with Facet Arthropathy without myelopathy. POSTOPERATIVE DIAGNOSIS: 1- Lumbar Spondylosis with Facet Arthropathy without myelopathy. PROCEDURES : Bilateral Radiofrequency thermocoagulation, L3 , L4 , and L5 medial branch, with fluoroscopic guidance (fluoroscopy images available in the radiology department) ( to denervate the facet joint at Bilateral L4-5 ,and L5-S1 levels ). ANESTHESIA: Monitered anesthesia Care as per anesthesia department . EBL: Minimal PROCEDURE INDICATION: The patient with low back pain secondary to lumbar facet arthropathy who had more than 50% relief of her pain with previous diagnostic lumbar medial branch block with bupivacaine. PROCEDURE DESCRIPTION / TECHNIQUE: The patient was seen and identified in the preoperative area. Risks, benefits, complications, including but not limited to risk of infection ,bleeding , allergic reactions to the medications and no complete pain releife , and alternatives were discussed with the patient, the patient agreed to proceed with the procedure and signed the consent. IV was started. Vital signs remained stable throughout the procedure. Patient was taken to the OR and time out was completed. The patient was placed in the prone position on the procedure table. The lumber area was prepped and draped in the usual sterile fashion. . Vital signs were closely monitored during the procedure .IV sedation was used during the procedure to decrease patients anxiety. Using AP and then oblique fluoroscopy, the ``eye of the [place] dog corresponding to the connection between the superior and transverse articular processes of right L3, L4, and L5 were identified, marked, and localized with 1% lidocaine. Subsequently, a [id number] radiofrequency cannula with a 10- mm active tip was advanced guided by fluoroscopy to each of the``eyes of the [place] dog at right L3, L4, and L5. Each site then underwent sensory testing at 50 Hz and 0 to 1 volt and motor testing at 2.5 Hz and 0 to 3 volt with loca l stimulation, but no radicular symptoms down the legs. Thereafter each sites underwent radiofrequency thermocoagulation at 80 degrees celsius for 90 seconds after injecting 0.5 ml of PF Ropivacaine 1ml, then after the thermocoagulation done , 1 ml of the block solution containing Depo-Medrol 40 mg and 3 ml of Ropivacaine 0.5% was injected at the right L3 , L4 , and L5 , levels after negative aspiration of CSF and blood and with no paresthesias. Cannulas were retracted while injecting lidocaine 1% until the needle is out. The same procedure was repeated at the level of Left L3, L4, and L5 levels. At the end of the procedure, the skin was cleansed and bandages were applied. COMPLICATIONS: No acute complications. DISPOSITION / PLANS: The patient was placed in a supine position and transferred to the recovery area in a stable condition for observation and was discharged from the recovery room after meeting discharge criteria. Home discharge instructions given to the patient by the staff. The patient was reexamined prior to discharge. The patient will schedule a follow up in the clinic in 2-4 weeks.
[2021-07-02] MEDS ORDERED: IV FLUID CONTINUATION 1,000 ML IV ONE (10:41)
--- NOTE | 2021-07-02 10:46 | FL ---
EXAMINATION TYPE: FL guided pain mgmt statistic DATE OF EXAM: 07/02/2021 CLINICAL HISTORY: Low back pain. TECHNIQUE: Fluoroscopy. COMPARISON: None. FINDINGS: Fluoroscopic guidance was provided during pain relief procedure performed by Sepideh Richards A total of 15 seconds of fluoroscopic time was utilized during the procedure and 7 spot images are acquired. Images acquired shows needle localization at several levels in the lower lumbar spine. IMPRESSION: As Above.
[2021-07-02 11:03] VITALS: RESP 16
[2021-07-02 11:20] VITALS: BP 112/77; PULSE 73
== END 2021-07-02 11:20 | disposition home or self-care (01) ==
LOC: ORPAIN 09:21
PROVIDERS: ATTEND Specialist
DX: M47.816 Spondylosis without myelopathy or radiculopathy, lumbar region (principal)
CPT/HCPCS: 64635; 64636; 81025; J2250; J1030; J3010; J2795

== ENCOUNTER → 2021-07-22 | Outpatient (CLI) | payer OTHER ==
[2021-07-22 11:31] VITALS: BP 118/80; PULSE 89; RESP 18; TEMP 97.8
--- NOTE | 2021-07-22 11:59 | P.PAINPG ---
Subjective Progress Note Date: 07/22/21 Principal diagnosis: Lumbar back pain, and neck pain on right side Mrs. Molina is a 51 -year-old pleasant female came to the [facility] pain clinic for postprocedure evaluation, and follow-up . Patient has ongoing pain for many years. Patient had bilateral lumbar L4-L5, and L5-S1 medial branch radiofrequency ablation on 08/02/2020. She had great pain relief, and able to perform her normal activities, able to sleep better. Patient also complaining of neck pain on the right side. Some days she is experiencing headaches which will relieve with Motrin as needed. She has on and off neck pain on the right side . Patient describes pain is aching, throbbing, constant type of pain. Her pain is not radiating to her lower extremities.. Patient rated pain levels are 2 out of 10 in severity. With the help of medications, and interventional procedures pain levels are 2 out of 10 in severity. Activities making pain worse. Medications, resting, intervention procedure helping in relieving patient's pain. Patient pain some days better than others. Overall activities decreased secondary to pain. Because of the pain sometimes patient is feeling lack of sleep, interest, and energy. Denied any side effects with the medications. Denied any bowel or bladder problems at this time. Patient is not using any aids for walking support. Patient denies any suicidal or homicidal ideations intent or plan. Patient denies any auditory or visual hallucinations. Patient denied any red flag symptoms related to pain. 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 Sensation grossly intact Lower extremity: Normal strength, and range of motion. Sensation grossly intact. Lumbar spine: Paravertebral tenderness: positive Lumbar facet load test : positive Sacroiliac joint tenderness: Negative Cervical spine: Paravertebral tenderness: Positive on right side Cervical spine facet leroy: Positive on right side Cervical spine Spurling test: Negative Multiple trigger point positive over right side cervical paraspinal, and trapezius muscle. - Constitutional Constitutional Comment(s): 13 point review of symptoms negative except as mentioned in history of present illness Assessment and Plan Assessment: Lumbar spondylosis without myelopathy Myofascial pain syndrome Cervical spondylosis without myelopathy on right-sided Cervicalgia, and headaches Tobacco dependence smoking cigarettes Plan: #1 Diagnoses, prognosis, and multiple treatment options including but not limited to physical therapy, interventional therapy, adjunct medication therapy, narcotic medication, and surgical options were discussed with the patient. And all questions were answered to the patient's satisfaction. #2 treatment plan agreement : Patient was thoroughly discussed regarding the treatment options, alternatives, and importance of exercises as tolerated. Patient clearly understood. #3 Patient was counseled on importance of regular exercise. Including wolf chi, aerobic exercises as tolerated. Which helps for chronic pain, and overall well- being. Patient also counseled regarding importance of weight control rolling chronic pain, and overall other health issues. By altering diet habits, minimizing sugar intake, and processed foods helps in minimizing Inflammation. Also discussed with the patient regarding intermittent fasting. Patient counseled regarding smoking associated with chronic pain, worsening inflammation, and smoking effects on liver, and medication metabolism. And encouraged to stop smoking. #4 investigations: MAPS- reviewed , urine drug test- none #5 diagnostic tests: None #6 consultation : Patient recommended physical therapy for neck pain but patient refuses to go at this time. Wants to practice neck exercises at home # 7 interventional procedures: Right side cervical trigger point injections . Procedure, complications, alternatives discussed with the patient. #8 medications #1 magnesium oxide 400 mg by mouth daily Medication side effects, complications, long-term consequences discussed with the patient. Patient recommended to contact the pain clinic if noticed any issues with given medications. #9 morphine milligrams equivalents dose ( MME) per day: 0 from the pain clinic. # 10 TENS unit's, and percussion massage device #11 disposition: scheduled to follow up with pain clinic as needed Time with Patient: Less than 30 PQRS Measure Charge Sheet Measure #130: Documentation of Current Meds in Medical Chart: Patient's medications documented in chart Measure #226: Tobacco Use: Screen & Cessation Intervention: Pt screened for tobacco use AND intervention given Measure #111: Pneumonia Vaccination: Pneumococcal vaccine NOT administered or previously given Measure #47: Advance Care Plan: Advance care planning discussed & documented, pt chose/unable to give Measure #412: Opioid Treatment Agreement: No documentation of signed opioid jennifer atment agreement Measure #408: Opioid Therapy Follow-up Evaluation: Patient had NO f/u eval minimum every 3 months during opioid therapy Measure #317: Preventitive Care & Scrn High Bld Press & F/U: Pre-hypertensive or hypertensive BP documented, pt will f/u with PCP Measure #128: Body Mass Index (BMI) Screening & Follow-up: BMI documented within normal parameters Measure #131: Pain Assessment & Follow-up: Pain positive & plan documented Measure #431: Unhealthy Alcohol Use Preventative Care & Scrn: Patient not identified as an unhealthy alcohol user Mode of Arrival: Ambulatory - Pain Location Lower Back Non-Pharmacological Interventions: Heat, Inactivity, Position/Reposition, Stretching Pharmacological Interventions: PRN Medication, Topical Medication PQRS Narrative: Smoking Status Current every day smoker Blood Pressure 118/80 Pain Intensity [Lower Back] 1 Scale Used Numeric (1 - 10) Hx Alcohol Use (MH) No Home Medications: Ambulatory Orders Albuterol Sulfate [Proventil Hfa] 1 - 2 puff INHALATION Q6HR PRN 01/16/17 Atorvastatin Calcium [Lipitor] 10 mg PO HS 04/23/21 Cholecalciferol [Vitamin D3 (25 Mcg = 1000 Iu)] 100 mcg PO DAILY 04/23/21 Omeprazole 40 mg PO DAILY PRN 04/23/21 Sertraline [Zoloft] 150 mg PO DAILY 04/23/21 Controlled Substance Measures - Controlled Substance Measures Is patient prescribed a controlled substance at discharge?: No
== END ==
LOC: PNWHC3 10:46
DX: M47.816 Spondylosis without myelopathy or radiculopathy, lumbar region (principal); M79.18 Myalgia, other site; M47.812 Spondylosis without myelopathy or radiculopathy, cervical region; F17.210 Nicotine dependence, cigarettes, uncomplicated
CPT/HCPCS: 99211

== ENCOUNTER → 2021-07-30 | Outpatient (CLI) | payer OTHER ==
--- NOTE | 2021-08-02 13:52 | MM ---
Reason for exam: screening (asymptomatic). Last mammogram was performed 2 years and 1 month ago. History: Retro-pectoral saline implants in both breasts, 2011. Physical Findings: A clinical breast exam by your physician is recommended on an annual basis and results should be correlated with mammographic findings. MG Screening Mammo Implant/CAD Bilateral CC, MLO, and ID view(s) were taken. Prior study comparison: July 01, 2019, bilateral MG screening mammo implant/CAD. May 16, 2018, bilateral MG screening mammo implant/CAD. The breast tissue is heterogeneously dense. This may lower the sensitivity of mammography. Focal asymmetry right outer CC, stable. Bilateral breast prothesis. No significant changes when compared with prior studies. ASSESSMENT: Benign, BI-RAD 2 RECOMMENDATION: Routine screening mammogram of both breasts in 1 year.
== END | disposition home or self-care (01) ==
LOC: RADMAMWWP 13:04
PROVIDERS: ATTEND Family Medicine
DX: Z12.31 Encounter for screening mammogram for malignant neoplasm of breast (principal)
CPT/HCPCS: 77067

== ENCOUNTER 2022-04-19 07:45 | Day surgery (SDC) | payer OTHER ==
[~2022-04-19 07:45] MED LIST changes: +LIDOCAINE 1% (10MG/ML) FOR IV START INTRADERMA PRN; +ONDANSETRON 4 MG/2 ML VIAL IVP PRN
[2022-04-19 08:11] VITALS: TEMP 98
[2022-04-19] MEDS: LACTATED RINGERS 1,000 ML IV SCH ×2 (08:22→09:02)
[2022-04-19] MEDS ORDERED: PROPOFOL 10 MG/ML 20 ML VIAL IV ONE (09:04)
--- NOTE | 2022-04-19 09:19 | P.PCN ---
Date of Procedure: 04/19/22 Procedure(s) Performed: BRIEF HISTORY: Patient is a 52-year-old pleasant white female scheduled for an elective colonoscopy as a part of screening for colon cancer and family history of colon cancer. Her sister was diagnosed with colon cancer at age 44 and her maternal aunt at age PROCEDURE PERFORMED: Colonoscopy. PREOPERATIVE DIAGNOSIS: screening for colon cancer and family history of colon cancer. IV sedation per Anesthesia. PROCEDURE: After informed consent was obtained, the patient, was brought into the endoscopy unit. IV sedation was administered by Anesthesia under continuous monitoring. Digital rectal examination was normal. Initially the Olympus CF-160 flexible video colonoscope was then inserted in the rectum, gradually advanced into the cecum without any difficulty. Careful examination was performed as the scope was gradually being withdrawn. Ileocecal valve and the appendiceal orifice were visualized and appeared normal. Prep was excellent. Mucosa of the cecum, ascending colon, transverse colon, descending colon, sigmoid colon, and rectum appeared normal. Retroflexion was performed in the rectum and no lesions were seen. The patient tolerated the procedure well. 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 She was advised to have a repeat screening colonoscopy every 5 years because of the family history of colon cancer.
[2022-04-19 09:36] VITALS: BP 103/70; PULSE 81; RESP 16
== END 2022-04-19 09:46 | disposition home or self-care (01) ==
LOC: ORWHC2ENDO 07:45
PROVIDERS: ATTEND Internal Medicine Gastroenterology
DX: Z12.11 Encounter for screening for malignant neoplasm of colon (principal); E78.5 Hyperlipidemia, unspecified; F17.210 Nicotine dependence, cigarettes, uncomplicated; K21.9 Gastro-esophageal reflux disease without esophagitis; Z79.899 Other long term (current) drug therapy; Z80.0 Family history of malignant neoplasm of digestive organs
CPT/HCPCS: 45378; 81025; J2704

== ENCOUNTER → 2022-08-10 | Outpatient (CLI) | payer OTHER ==
--- NOTE | 2022-08-11 08:23 | MM ---
Reason for Exam: Screening (asymptomatic). Last screening mammogram was performed 12 month(s) ago. Patient History: Menarche at age 16. First Full-Term at age 23. 2012, Bilateral Implants. Risk Values: [place] 5 year model risk: 0.9%. NCI Lifetime model risk: 7.1%. Prior Study Comparison: 05/16/2018 Bilateral Screening Mammogram, [facility]. 07/01/2019 Bilateral Screening Mammogram, [facility]. 07/30/2021 Bilateral Screening Mammogram, [facility]. Tissue Density: The breast tissue is heterogeneously dense. This may lower the sensitivity of mammography. Findings: Analyzed By CAD. There is no suspicious group of microcalcifications or new suspicious mass in either breast. Bilateral implants are intact. Overall Assessment: Benign, BI-RAD 2 Management: Screening Mammogram of both breasts in 1 year. A clinical breast exam by your physician is recommended on an annual basis and results should be correlated with mammographic findings. Electronically signed and approved by: Sami Cortez M.D. Radiologis
== END | disposition home or self-care (01) ==
LOC: RADMAMWWP 10:58
DX: Z12.31 Encounter for screening mammogram for malignant neoplasm of breast (principal)
CPT/HCPCS: 77067

== ENCOUNTER → 2023-06-10 | Outpatient (CLI) | payer OTHER ==
--- NOTE | 2023-06-14 09:37 | MR ---
EXAMINATION TYPE: MR lumbar spine wo con DATE OF EXAM: 06/10/2023 COMPARISON: 04/02/2021 HISTORY: Mid to lower back pain, RLE radiculopathy. Hx surgery. TECHNIQUE: Multiplanar, multisequence images of the lumbar spine were acquired without IV contrast. L1-L2: Normal disc appearance without desiccation. No herniation, protrusion or disc bulging. No ca nal stenosis is present. Foramina are patent bilaterally. L2-L3: Mild disc desiccation posterior disc bulge. No evidence for herniation or central stenosis. No lateral recess stenosis or foraminal encroachment. L3-L4: Mild disc desiccation posterior disc bulge. No evidence for herniation or central stenosis. No lateral recess stenosis or foraminal encroachment. L4-L5: Mild disc desiccation posterior disc bulge. No evidence for herniation or central stenosis. No lateral recess stenosis. Mild right foraminal encroachment with facet joint arthropathy. L5-S1: Moderate disc desiccation with posterior disc bulge. No significant effacement. No disc hernia tion or protrusion. Mild right foraminal encroachment. Lumbar segments are intact. No paraspinal masses are identified. Conus medullaris has a normal appe arance. IMPRESSION: 1. Multilevel disc desiccation and disc bulging however there is no evidence for central stenosis. Ri ght-sided foraminal encroachment at all for 5 and L5-S1.
== END | disposition home or self-care (01) ==
LOC: RADMRIMAIN 09:41
DX: M51.26 Other intervertebral disc displacement, lumbar region (principal); M51.16 Intervertebral disc disorders with radiculopathy, lumbar region
CPT/HCPCS: 72148

== ENCOUNTER → 2023-08-11 | Outpatient (CLI) | payer OTHER ==
--- NOTE | 2023-08-14 09:26 | MM ---
Reason for Exam: Screening (asymptomatic). Last screening mammogram was performed 12 month(s) ago. Patient History: Menarche at age 16. First Full-Term at age 23. 2012, Bilateral Implants. Risk Values: Gardenia 5 year model risk: 0.9%. NCI Lifetime model risk: 7.0%. Prior Study Comparison: 07/01/2019 Bilateral Screening Mammogram, [facility]. 07/30/2021 Bilateral Screening Mammogram, [facility]. 08/10/2022 Bilateral MG screening mammo implant/CAD, [facility]. Tissue Density: The breast tissue is heterogeneously dense. This may lower the sensitivity of mammography. Findings: Analyzed By CAD. There is no suspicious group of microcalcifications or new suspicious mass in either breast. Implants are intact bilaterally. Overall Assessment: Benign, BI-RAD 2 Management: Screening Mammogram of both breasts in 1 year. . Patient should continue monthly self-breast exams. A clinical breast exam by your physician is recommended on an annual basis. This exam should not preclude additional follow-up of suspicious palpable abnormalities. Note on Gardenia scores and lifetime risk: 1. A Gardenia score greater than 3% is considered moderate risk. If this is the case, consider specialist referral to assess eligibility for a risk reducing agent. 2. If overall lifetime risk for the development of breast cancer is 20% or higher, the patient may qualify for future screening with alternating mammogram and breast MRI. Electronically signed and approved by: Sami Cortez M.D. Radiologis
== END | disposition home or self-care (01) ==
LOC: RADMAMWWP 11:09
DX: Z12.31 Encounter for screening mammogram for malignant neoplasm of breast (principal); Z98.82 Breast implant status
CPT/HCPCS: 77063; 77067

== ENCOUNTER → 2024-08-14 | Outpatient (CLI) | payer OTHER ==
--- NOTE | 2024-08-14 09:34 | MM ---
Reason for Exam: Screening (asymptomatic). Last screening mammogram was performed 12 month(s) ago. Patient History: Menarche at age 16. First Full-Term at age 23. 2012, Bilateral Implants. Risk Values: Gardenia 5 year model risk: 0.9%. NCI Lifetime model risk: 6.9%. Prior Study Comparison: 07/30/2021 Bilateral Screening Mammogram, [facility]. 08/10/2022 Bilateral MG screening mammo implant/CAD, [facility]. 08/11/2023 Bilateral MG 3D screen mammo imp/cad., [facility]. Tissue Density: There are scattered areas of fibroglandular density. Findings: Analyzed By CAD. Bilateral breast implants appear intact. Right breast: There is no suspicious group of microcalcifications or new suspicious mass. Benign-appearing calcifications right breast. Left breast: There is no suspicious group of microcalcifications or new suspicious mass. Benign-appearing calcifications left breast. Overall Assessment: Benign, BI-RAD 2 Management: Screening Mammogram of both breasts in [address] [facility] will attempt to contact patient to return for supplemental views and ultrasound if indicated. Patient should continue monthly self-breast exams. A clinical breast exam by your physician is recommended on an annual basis. This exam should not preclude additional follow-up of suspicious palpable abnormalities. Note on Gardenia scores and lifetime risk: 1. A Gardenia score greater than 3% is considered moderate risk. If this is the case, consider specialist referral to assess eligibility for a risk reducing agent. 2. If overall lifetime risk for the development of breast cancer is 20% or higher, the patient may qualify for future screening with alternating mammogram and breast MRI. [facility], , 08/14/2024 9:31 AM. Electronically signed and approved by: Kali Manuel DO
== END | disposition home or self-care (01) ==
LOC: RADMAMWWP 08:59
PROVIDERS: ATTEND Family Medicine
DX: Z12.31 Encounter for screening mammogram for malignant neoplasm of breast (principal); R92.323 Mammographic fibroglandular density, bilateral breasts; R92.1 Mammographic calcification found on diagnostic imaging of breast; Z98.82 Breast implant status
CPT/HCPCS: 77063; 77067

== ENCOUNTER → 2024-09-17 | Outpatient (CLI) | payer OTHER ==
--- NOTE | 2024-09-17 11:00 | MR ---
EXAMINATION TYPE: MR cervical spine wo con DATE OF EXAM: 09/17/2024 10:48 AM COMPARISON: 12/21/2023. CLINICAL INDICATION: Female, 54 years old with history of M62.81,M48.02,M54.2; PHH, Neck pain/weaknes s into Right arm/fingers, Headaches TECHNIQUE: Multi planar, multi sequence imaging was performed utilizing: T1-weighted, T2-weighted, an d turbo inversion recovery imaging of the cervical spine. IV Contrast: mL (None, if empty) FINDINGS: Alignment: The cervical vertebral bodies have preserved heights. Alignment is within normal limits gi breanna patient positioning. Bones: Osteophytes and disc space narrowing most pronounced at the C5-C7 vertebral levels. Cord: The spinal cord is unremarkable with regards to their signal intensity and morphology. Discs: Intervertebral disc signal is maintained. C2-C3: No significant disc pathology. The spinal canal is patent. No neural foraminal stenosis. C3-C4: No significant disc pathology. The spinal canal is patent. No neural foraminal stenosis. C4-C5: A disc osteophyte complex is present with mild spinal canal stenosis. There is mild impression upon the spinal cord from left central disc osteophyte. No neural foraminal stenosis. C5-C6: A disc osteophyte complex is present with mild to moderate spinal canal stenosis. Osteophytes impress upon the left spinal cord. Bilateral facet and uncovertebral joint arthropathy are present wi th large severe right and mild left neural foraminal stenosis. C6-C7: A disc osteophyte complex is present with mild to moderate spinal canal stenosis. Osteophytes impress upon the left spinal cord. Bilateral facet and uncovertebral joint arthropathy are present wi th moderate severe left and mild neural foraminal stenosis. C7-T1: No significant disc pathology. The spinal canal is patent. No neural foraminal stenosis. Other: None. IMPRESSION: Overall stable exam. Multilevel disc degeneration with associated osteoarthritic changes findings worse at C5-C6 and C6-7 with mild to moderate spinal canal stenosis and mass effect impressing upon the spinal cord. Spinal c ord signal is maintained. C4-C5 also demonstrates a left central osteophyte which impresses slightly on the spinal cord. Neural foraminal stenosis worse at C5-C6 on the right and moderate severe on C6-C7 with moderate surr ounding the left. [facility], , 09/17/2024 10:57 AM
== END | disposition home or self-care (01) ==
LOC: RADMRIMAIN 10:05
PROVIDERS: ATTEND Orthopaedic Surgery
DX: M48.02 Spinal stenosis, cervical region (principal); M50.323 Other cervical disc degeneration at C6-C7 level; M99.71 Connective tissue and disc stenosis of intervertebral foramina of cervical region; M47.812 Spondylosis without myelopathy or radiculopathy, cervical region
CPT/HCPCS: 72141